=== PATIENT | female | born 1970 | race Caucasian/White ===

== ENCOUNTER 2021-09-25 21:12 | Emergency (ER) | payer OTHER ==
[2021-09-25 21:30] VITALS: BP 149/88; PULSE 89; RESP 18; TEMP 98.1; BMI 28.3
[2021-09-25] MEDS ORDERED: IBUPROFEN 600 MG TABLET (FP) PO ONE ×2 (22:00→22:02)
== END 2021-09-25 22:04 | disposition home or self-care (01) ==
LOC: JERFT 21:12 → JER 21:12 → JERFT 22:04
DX: R51.9 Headache, unspecified (principal)
CPT/HCPCS: 99283-25